=== PATIENT | female | born 1945 | race African-American/Black ===

== ENCOUNTER 2017-01-18 17:13 | Emergency (ER) | payer MEDICARE, OTHER ==
--- NOTE | ~2017-01-18 | CR72 ---
[facility] A Service of [facility] & [facility] RADIOLOGY TEXT RESULTS PATIENT: ADILSON SANDHU LOCATION: [facility] : 43 UNIT #: [id number] AGE: [address]: Teresa Hernandez MD SEX: F ORDER DR: [id number] [facility] [address] [place], [place] [address] [id number] E MR#: [id number] Acc #: [id number] NAME: ADILSON SANDHU. : 1945 SEX: F STUDY DATE/TIME: 01/18/2017 17:23 UNIT: [facility] ROOM: STUDY DESCRIPTION: CR Chest Single View Portable Attending Physician: Teresa Hernandez M.D. Ordering Physician: Teresa Hernandez M.D. Primary Care Physician: Jerrell Carney M.D. MEDICAL IMAGING REPORT This report is preliminary unless electronic signature is present EXAM Portable chest 1 view, 01/18/2017. COMPARISON 03/18/2016 HISTORY Cough for 6 days. FINDINGS There is dextroscoliosis but no acute abnormality is seen. There is no consolidation or effusion or pneumothorax. There is mild elevation of the left hemidiaphragm, unchanged since prior exams. Dictated by... Russel Antonio M.D. THIS IS AN ELECTRONICALLY VERIFIED REPORT Russel Antonio M.D. at 01/18/2017 10:44 PM TEV/psc TD: 01/18/2017 22:17 JOB #: [id number] MEDICAL IMAGING REPORT COPY
[~2017-01-18 17:13] MED LIST: HCTZ PO; HYDROCODON-ACE1 EAC9 PO; KEFLEX500 MG PO; [UNRECOGNIZED DRUG - REMARK] PO
[2017-01-18 17:50] LABS: INFLUENZA A NEG (NEG); INFLUENZA B NEG (NEG)
== END 2017-01-18 19:01 | disposition home or self-care (01) ==
LOC: CED 17:13
PROVIDERS: Student in an Organized Health Care Education/Training Program
DX: J01.90 Acute sinusitis, unspecified (principal); E11.9 Type 2 diabetes mellitus without complications; I10 Essential (primary) hypertension
CPT/HCPCS: 71010; 87804; 99283

== ENCOUNTER 2017-06-17 17:26 | Emergency (ER) | payer MEDICARE, OTHER ==
[~2017-06-17] VITALS: Ht 162.6 cm; Wt 102.0 kg
--- NOTE | ~2017-06-17 | CT71 ---
[facility] A Service of [facility] & [facility] RADIOLOGY TEXT RESULTS PATIENT: ADILSON SANDHU LOCATION: [facility] : 43 UNIT #: [id number] AGE: [address]: Dwight Flores MD SEX: F ORDER DR: [id number] [facility] [address] [place], [place] [address] [id number] E MR#: [id number] Acc #: [id number] NAME: ADILSON SANDHU. : 1945 SEX: F STUDY DATE/TIME: 06/17/2017 20:05 UNIT: [facility] ROOM: STUDY DESCRIPTION: CT Head Wo Contrast Attending Physician: Dwight Flores M.D. Ordering Physician: Valentino Ryan M.D. Primary Care Physician: Jerrell Carney M.D. MEDICAL IMAGING REPORT This report is preliminary unless electronic signature is present EXAM CT head 06/17/2017 HISTORY Fell last night, 1900 hours, injury to top of head. Pain now right-sided head, posterior neck pain. Prior craniotomy. TECHNIQUE CT of the head performed skull base through vertex without intravenous contrast. This CT exam was performed with one or more of the following radiation dose reduction techniques: Automatic exposure control, adjustment of mA and/or kV according to patient size, and iterative reconstruction. NOTE Findings were discussed directly with Dr. Flores immediately prior to this dictation. COMPARISON 03/18/2016 FINDINGS No acute brainstem abnormality. No acute cerebellar abnormality. The patient is status post right temporal craniotomy in the interval from the prior examination. Cause for cranial intervention unknown at time of this dictation. There is a large area of encephalomalacia involving the mid and anterior right temporal lobe. Overlying the right frontal lobe and to a lesser extent the anterior right frontoparietal junction region, extending nearly to the vertex, there is a subdural fluid collection extending approximately 10 cm in [id number]-vv-[id number] extent and measuring up to about 11-12 mm in thickness. It contains some high-density material along its posterior aspect. The appearance is most suggestive of a subdural hematoma. There are probably subacute and acute STS. [facility] A Service of [facility] & [facility] RADIOLOGY TEXT RESULTS PATIENT: ADILSON SANDHU LOCATION: [facility] : 43 UNIT #: [id number] AGE: [address]: Dwight Flores MD SEX: F ORDER DR: products of hemorrhage present. There is mass effect on the subjacent right frontal lobe. There may be some minimal right to left subfalcine herniation on the order of about 2 mm at most. There is no intraparenchymal hemorrhage. The remaining midline structures are nondisplaced. The ventricles, cisterns and sulci outside the area of encephalomalacia in the right temporal lobe show mild generalized enlargement consistent with generalized atrophy. There may be a very small subdural hematoma along the anterior left paracentral falx adjacent to the anteromedial frontal lobe measuring about 12 mm in length by 4 mm in width with no mass effect on the underlying brain. Short-interval followup to confirm resolution of these findings recommended. There is no intra-axial mass effect. There are cavernous carotid and distal vertebral arterial calcifications. No acute traumatic bony abnormality. The visualized paranasal sinuses, mastoid air cells are clear. IMPRESSION 1. Abnormal examination. See complete dictation above for full details. Findings discussed with Dr. Flores immediately prior to this dictation. There is a subdural fluid collection along the near complete entirety of the right frontal lobe extending nearly to the vertex. It extends posteriorly to the anterior aspect of the frontoparietal junction region. It measures about 10 cm in AP dimension and about 11-12 mm in thickness. There are some hyperdense components along its dependent portion. I favor that this is an acute to early subacute subdural hematoma. There is mass effect on the underlying right frontal lobe. There may be some minimal perhaps 2 mm right to left subfalcine herniation along the anterior-inferior aspect of the right medial frontal lobe. No other areas of any significant midline shift. In addition, there is probably a tiny left paracentral anterior falcine subdural hematoma measuring about 12 mm in length and 4-5 mm in width with no mass effect on adjacent brain. Would recommend short-interval follow up to confirm resolution of these findings. 2. In the interval from 03/18/2016, the patient has undergone right temporal craniotomy. There is extensive encephalomalacia involving the mid to anterior right temporal lobe. At time of this dictation, cause for the interval craniotomy is unknown. Please correlate with history when it becomes available. 3. There is mild underlying atrophy. 4. There is no indication of acute cortical ischemia or intraparenchymal hemorrhage. 5. No acute traumatic bony abnormality. 6. Not mentioned in body of report above, there is some subcutaneous fat stranding in the left paracentral parietal scalp vertex which may reflect the patient's stated acute trauma. There is no soft tissue defect, subcutaneous air, or radiodense nonsurgical foreign body. 7. Vascular calcifications. [facility]. [facility] A Service of [facility] RADIOLOGY TEXT RESULTS PATIENT: ADILSON SANDHU [id number] : 43 UNIT #: [id number] AGE: [address]: Dwight Flores MD SEX: F ORDER DR: Dictated by... Murtaza Feliz M.D. THIS IS AN ELECTRONICALLY VERIFIED REPORT Murtaza Feliz M.D. at 06/18/2017 2:44 PM RASHAD/marisa TD: 06/18/2017 08:41 JOB #: [id number] MEDICAL IMAGING REPORT Page 1 of 1 COPY
--- NOTE | ~2017-06-17 | CT52 ---
[facility] A Service of [facility] RADIOLOGY TEXT RESULTS PATIENT: ADILSON SANDHU LOCATION: [facility] : 43 UNIT #: [id number] AGE: [address]: Dwight Flores MD SEX: F ORDER DR: [id number] [facility] [address] [place], [place] [address] [id number] E MR#: [id number] Acc #: [id number] NAME: ADILSON SANDHU. : 1945 SEX: F STUDY DATE/TIME: 06/17/2017 20:08 UNIT: [facility] ROOM: STUDY DESCRIPTION: CT Cervical Spine Wo Cont Attending Physician: Dwight Flores M.D. Ordering Physician: Valentino Ryan M.D. Primary Care Physician: Jerrell Carney M.D. MEDICAL IMAGING REPORT This report is preliminary unless electronic signature is present EXAM CT cervical spine without contrast, 06/17/2017 20:08 hours HISTORY Patient fell last night at 19:00 hours suffering injury to top of head. Pain now right side of head and posterior neck. History of prior craniotomy in similar area to pain. COMPARISON CT cervical spine, 03/18/2016 TECHNIQUE Axial noncontrasted images were obtained from the skull base to the upper thoracic spine. No contrast was administered. Sagittal and coronal reconstructions were performed. Total exam DLP 465 mGy-cm. This CT exam was performed with one or more of the following radiation dose reduction techniques: automatic exposure control, adjustment of mA and/or kV according to patient size, and iterative reconstruction. FINDINGS Images through the posterior fossa are negative. There is no skull base fracture. The mastoid air cells are clear. There is mild spurring at the C1-2 articulation but no dens fracture. C2-3 is normal. C3-4 is normal. C4-5 is normal. C5-6 again demonstrates disc height loss with endplate and uncovertebral spurring. This is similar to 03/18/2016. There is no central [facility] RADIOLOGY TEXT RESULTS PATIENT: ADILSON SANDHU LOCATION: [facility] #: [id number] : 43 UNIT #: [id number] AGE: [address]: Dwight Flores MD SEX: F ORDER DR: foraminal narrowing. C6-7 and C7-T1 are normal. IMPRESSION There is stable degenerative disc disease at C5-[address] scan 03/18/2016. There is no fracture or subluxation. Dictated by... Rosalba James M.D. THIS IS AN ELECTRONICALLY VERIFIED REPORT Rosalba James M.D. at 06/18/2017 8:41 AM Pat TD: 06/18/2017 08:11 JOB #: [id number] MEDICAL IMAGING REPORT Page 1 of 1 COPY
[2017-06-17 21:03] LABS: BASOPHIL# 0.1 X10e3 (0-0.3); BASOPHIL% 0.7 % (0-2.5); EOSINOPHIL# 0.2 X10e3 (0-0.7); EOSINOPHIL% 2.2 % (0.0-7.0); HEMATOCRIT 36.2 % (35.0-45.0); HEMOGLOBIN 11.6 gm/dL (12.0-16.0); LYMPHOCYTE# 3.7 X10e3 (1.0-3.5); LYMPHOCYTE% 38.9 % (17.0-45.0); MEAN CORPUSCULAR HGB CONC 32.1 g/dL (30-36); MEAN PLATELET VOLUME 8.6 FL (6.5-11.5); MONOCYTE# 0.8 X10e3 (0-1.0); MONOCYTE% 8.8 % (3.0-12.0); NEUTROPHIL# 4.7 X10e3 (1.5-7.1); NEUTROPHIL% 49.4 % (40-75); PLATELET COUNT 204 X10e3 (140-420); RED BLOOD COUNT 4.47 X10e (3.90-5.30); WHITE BLOOD COUNT 9.5 X10e3 (4.0-10.5)
[2017-06-17 21:04] LABS: DIFF IND NO
[2017-06-17 21:20] LABS: PARTIAL THROMBOPLASTIN TIME 25.7 SECONDS (23.5-31.3); PROTHROMBIN TIME (PATIENT) 10.6 SECONDS (10.0-11.7)
[2017-06-17 21:25] LABS: ALBUMIN SERUM 3.9 g/dL (3.5-5.0); BILIRUBIN,TOTAL 0.2 mg/dL (0.2-2.0); BUN/CREATININE RATIO 16.92; CALCIUM SERUM 9.3 mg/dL (8.4-10.2); CREATININE SERUM 1.3 mg/dL (0.6-1.4); GLOM FILT RATE Estimated 47.5 mL/min (>60); POTASSIUM 4.1 mmol/L (3.5-5.1); PROTEIN TOTAL SERUM 7.9 g/dL (6.0-8.3)
== END 2017-06-17 22:41 | disposition short-term general hospital (02) ==
LOC: CED 17:26
PROVIDERS: Emergency Medicine
DX: S00.03XA Contusion of scalp, initial encounter (principal); W22.8XXA Striking against or struck by other objects, initial encounter
CPT/HCPCS: 70450; 72125; 80053; 85025; 85610; 85730; 99284; J1953